=== PATIENT | female | born 1980 | race Caucasian/White ===

== ENCOUNTER 2018-02-04 19:52 | Emergency (ER) | payer MEDICAID ==
[~2018-02-04] VITALS: Ht 157.5 cm; Wt 56.7 kg
[2018-02-04 21:13] LABS: Urine Pregnacy Test Negative (Negative)
[2018-02-04 21:18] LABS: Amphetamine Screen, Urine NEGATIVE (NEGATIVE); Barbiturate Scree,Urine NEGATIVE (NEGATIVE); Benzodiazephine Screen, Urine NEGATIVE (NEGATIVE); Cannabinoid Screen, Urine NEGATIVE (NEGATIVE); Cocaine Screen, Urine NEGATIVE (NEGATIVE); Opiate Scree,Urine NEGATIVE (NEGATIVE); Phencyclidine Screen, Urine NEGATIVE (NEGATIVE)
[2018-02-04 21:26] LABS: Urine Bacteria FEW /hpf (None Seen); Urine Blood Negative /uL (Negative); Urine Specific Gravity 1.014 (1.001-1.035); Urine WBC 3 /hpf (0 - 5)
[2018-02-04 22:52] VITALS: BP 139/98
[2018-02-04 23:06] LABS: Basophils # (auto) 0.1 uL; Eosinophils # (auto) 0.2 uL; Mean Corpuscular Hemoglobin 36.4 pg (28.0-32.0); Monocytes # (auto) 0.5 uL; Neutrophils # (auto) 4.7 uL; Nucleated Red Blood Cells % 0.3 %; Red Blood Cells 3.61 10^6/uL (4.0-5.20); Red Cell Distribution Width 16.7 % (11.8-14.3)
[2018-02-04 23:08] LABS: Basophils % (auto) 1.3 % (0.0-2.0); Eosinophils % (auto) 2.5 % (0.0-7.0); Hematocrit 36.7 % (36.0-46.0); Hemoglobin 13.2 g/dL (12.2-16.2); Lymphocytes # (auto) 4.1 uL; Mean Corpuscular Hgb Conc. 35.9 g/dL (32.0-36.0); Mean Corpuscular Volume 101.5 fL (80.0-100.0); Monocytes % (auto) 5.4 % (0.0-12.0); Neutrophils % (auto) 48.8 % (37.0-80.0); Platelet Count (auto) 221 10^3/uL (140-450); White Blood Cell 9.7 10^3/uL (4.4-10.8)
[2018-02-04 23:23] LABS: Albumin 3.9 g/dL (3.4-5.0); Calcium 6.9 mg/dL (8.5-10.1); Potassium 3.4 mmol/L (3.5-5.1)
[2018-02-04 23:30] LABS: BUN/Creatinine Ratio 10.5
[2018-02-04 23:34] LABS: Bilirubin, Total 0.5 mg/dL (0.2-1.0)
[2018-02-04 23:43] LABS: Total Protein 7.6 g/dL (6.4-8.2)
== END 2018-02-05 01:02 | disposition home or self-care (01) ==
LOC: ER 19:52
DX: M79.661 Pain in right lower leg (principal); E07.9 Disorder of thyroid, unspecified; F17.210 Nicotine dependence, cigarettes, uncomplicated; Z91.14 Patient's other noncompliance with medication regimen; Z59.0 Homelessness; Z88.8 Allergy status to other drugs, medicaments and biological substances; Z88.0 Allergy status to penicillin
CPT/HCPCS: 36415; 80053; 80307; 81001; 81025; 84443; 85025; 93971